=== PATIENT | male | born 1970 | race Caucasian/White ===

== ENCOUNTER → 2017-02-10 | Outpatient (CLI) | payer OTHER ==
[~2017-02-10] MED LIST: IOPAMIDOL (ISOVUE-300) 100 ML BTL IV ONE
== END ==
LOC: CIMAGING 08:14
PROVIDERS: ATTEND Family Medicine
DX: R10.12 Left upper quadrant pain (principal); N20.0 Calculus of kidney
CPT/HCPCS: 74160-PO; Q9967

== ENCOUNTER → 2017-06-06 | Outpatient (CLI) | payer OTHER | LOC: CIMAGING 07:18 | PROVIDERS: ATTEND Family Medicine | DX: R10.31 Right lower quadrant pain (principal) | CPT/HCPCS: 76705-PO; 76870-PO ==

== ENCOUNTER → 2017-11-14 | Outpatient (CLI) | payer OTHER | LOC: FIMAGING 17:55 | PROVIDERS: ATTEND Physician Assistant Medical | DX: M54.5 Low back pain (principal) ==

== ENCOUNTER 2018-02-08 21:13 | Emergency (ER) | payer OTHER ==
--- NOTE | 2018-02-08 21:34 | CPEKG ---
Heart Rate: 67 RR Interval: 896 P-R Interval: 133 QRSD Interval: 102 QT Interval: 400 QTC Interval: 423 P [place]: 1 QRS [place]: -12 T Wave [place]: 44 EKG Severity - NORMAL ECG - EKG Impression: SINUS RHYTHM EKG Impression: Agree with above Electronically Signed By: Zeb Bedolla 09-Feb-2018 11:01:13
[2018-02-08 21:56] LABS: PLATELET COUNT 267 10^3/uL (150-400)
[2018-02-08 22:01] LABS: INR 0.93 (0.83-1.16); PROTIME(PATIENT) 12.4 SEC (12.0-15.0)
[2018-02-08] MEDS ORDERED: IOPAMIDOL (ISOVUE 370) 100 ML BTL IV ONE (22:52)
--- NOTE | 2018-02-08 23:16 | EDPHY ---
H & P Time Seen by Provider: 02/08/18 21:14 HPI/ROS: 47-year-old male presents complaining of shortness of breath of sudden onset this evening, he attempted to go to an urgent care who recommended that he come to the emergency department for more extensive evaluation. He has had a hip arthroscopy for hip impingement on January 31, 2018 He is on aspirin. He states he only medication different from his normal meds that he took today was Colace and he is concerned that the shortness of breath may be a reaction to the Colace. Review of systems As per HPI General no fever no chills no weakness HEENT no eye pain no eye discharge. No eye redness, no sore throat Respiratory no cough, positive shortness of breath Cardiac no chest pain, no peripheral edema GI no abdominal pain, no diarrhea, no constipation, no nausea, no vomiting no flank pain, no hematuria, no dysuria Musculoskeletal no myalgias, positive joint pain Heme no easy bruising, no easy bleeding Endo no polyuria, no polydipsia Skin no rashes, no pruritus Neuro no syncope, no dizziness, no headaches Psych is no suicidal ideation, no homicidal ideation Past Medical/Surgical History: Hip impingement with recent arthroscopy Social History: Denies alcohol or drug use Smoking Status: Never smoked Physical Exam: 47-year-old male alert and oriented, anxious, vital signs stable, afebrile HEENT atraumatic normocephalic, extraocular muscles intact, anicteric Oropharynx negative for erythema negative exudate, tolerating her own secretions Neck supple no meningismus Lungs clear to auscultation bilaterally Heart regular rate and rhythm without murmur rub or gallop Abdomen nondistended normoactive bowel sounds soft nontender Back no CVA tenderness, no step-offs, no spinal tenderness Extremities no cyanosis clubbing or edema Neuro alert and oriented, no focal deficits Constitutional: Initial Vital Signs Temperature (C) 37.0 C 02/08/18 21:17 Heart Rate 84 02/08/18 21:17 Respiratory Rate 18 02/08/18 21:17 Blood Pressure 145/80 H 02/08/18 21:17 O2 Sat (%) 99 02/08/18 21:17 O2 Delivery Mode Room Air Allergies/Adverse Reactions: codeine Allergy (Verified 02/08/18 21:16) Penicillins Allergy (Verified 02/08/18 21:16) Home Medications: Medication Instructions Recorded Aspirin [Aspirin 325 mg (*)] 02/08/18 Docusate Sodium [Colace 100 MG (*)] 02/08/18 Indomethacin 02/08/18 Pantoprazole Sodium [Protonix] 40 mg PO 02/08/18 Medical Decision Making ED Course/Re-evaluation: Patient seen and evaluated for shortness of breath, postoperative from hip arthroscopy on January 31, 2018. EKG normal sinus rhythm Chest x-ray negative for infiltrate CT chest negative for pulmonary embolus My immediate concern was the possibility of pe in this post operative pt with reported tachycardia at the urgent care, in the ED he no longer had tachycardia but remained very anxious and intermittently complained of shortness of breath. Imp Anxiety pulmonary embolus ruled out by ct scan Plan dc home f/u pcp f/u ortho as planned Differential Diagnosis: Differential diagnosis considered but not limited to: URI, bronchitis, pneumonia, pulmonary embolus, anxiety - Data Points Laboratory Results: Laboratory Results 02/08/18 21:24 02/08/18 21:24 Departure - Departure Disposition: Home, Routine, Self-Care Clinical Impression: Dyspnea Condition: Good Instructions: Shortness of Breath (ED) Referrals: Patient,NotPresent [Primary Care Provider] - As per Instructions
[2018-02-08 23:52] VITALS: BP 124/80
== END 2018-02-08 23:52 | disposition home or self-care (01) ==
LOC: CED 21:13
DX: R06.00 Dyspnea, unspecified (principal); Z79.82 Long term (current) use of aspirin
CPT/HCPCS: 71046-PO; 71275-PO; 80053-PO; 84484-PO; 85025-PO; 85378-PO; 85610-PO; 85730-PO; Q9967

== ENCOUNTER 2018-03-05 13:14 | Emergency (ER) | payer OTHER ==
--- NOTE | 2018-03-05 14:12 | EDPHY ---
H & P Time Seen by Provider: 03/05/18 13:21 HPI/ROS: CHIEF COMPLAINT: Right calf pain HISTORY OF PRESENT ILLNESS: Patient states he has had right calf pain and tenderness since Tuesday the 01 of March. He called his orthopedic surgeon and was referred for ultrasound. He states he had arthroscopic hip surgery on the [address] Mccann at [facility]. He is still using crutches with partial weight-bearing. He was taking oral aspirin until last . On the 08 of February he came to this facility and had an evaluation for possible pulmonary embolism. At that time his D-dimer was 0.31, a he had a CT PE performed which was negative for thromboembolic disease. On the 24 of February he had an ultrasound on his right calf which was negative. He denies any shortness of breath. He had a twinge of bilateral muscular chest pain while going up stairs with his crutches this morning. That pain went away after 15 min and has not return. He denies any other recent illnesses. No trauma. He has tried ice and elevation to this right calf pain but says it has got worse not better. REVIEW OF SYSTEMS: Negative except per HPI. General Appearance: Alert, no distress. Eyes: Pupils equal and round no icterus Respiratory: No respiratory distress Neurological: Awake, alert, no focal deficits. Skin: Warm and dry, no rashes. Musculoskeletal: Neck is supple nontender. Extremities are symmetrical, full range of motion, no edema. Tenderness to palpation to the proximal posterior calf in the midline. Distal pulses normal. Psychiatric: Patient is oriented X 3, there is no agitation. Medical/surgical history: Recent surgery as per HPI Social history: Nonsmoker, no significant family history of thromboembolic disorder. Smoking Status: Never smoked Constitutional: Initial Vital Signs Temperature (C) 37 C 03/05/18 13:20 Heart Rate 93 03/05/18 13:20 Respiratory Rate 16 03/05/18 13:20 Blood Pressure 133/88 H 03/05/18 13:20 O2 Sat (%) 97 03/05/18 13:20 O2 Delivery Mode Room Air Allergies/Adverse Reactions: codeine Allergy (Verified 03/05/18 13:28) Penicillins Allergy (Verified 03/05/18 13:28) Home Medications: Medication Instructions Recorded Rivaroxaban [Xarelto 15mg (*)] 15 mg PO BID 21 Days #42 tab 03/05/18 Medical Decision Making - Diagnostics Imaging Results: Imaging Impressions Extremity Venous Study 03/05/18 13:28 Impression: 1. Partially occlusive thrombus in the popliteal vein with thrombus involving intramuscular branches in the gastrocnemius proximal to mid calf. 2. Popliteal cyst present. Findings discussed with Jane Tolliver MD at 15:12 hour, 03/05/2018. Imaging: Discussed imaging studies w/ will call order clerk Radiologist ED Course/Re-evaluation: Ultrasound shows partial occlusion of the popliteal vein with occlusion of the smaller veins of the gastrocnemius muscle. Will start patient on Xarelto. Differential Diagnosis: Differential diagnosis includes but is not limited to DVT, muscle strain, peripheral edema, muscle spasm. Ultrasound demonstrates partial occlusion of the popliteal vein consistent with DVT. Also smaller distal veins with complete occlusion in the gastrocnemius vasculature. Discussed with radiologist. Plan is to start patient on Xarelto, 15 mg twice a day for 21 days. He will follow up with his primary care physician and orthopedist this coming week and will get further prescriptions for Xarelto from them. Questions answered. Patient is stable for discharge. Departure - Departure Clinical Impression: DVT (deep venous thrombosis) Qualifiers: DVT location: lower extremity Affected thrombotic vein of extremity: popliteal Chronicity: acute Laterality: right Qualified Code(s): I82.431 - Acute embolism and thrombosis of right popliteal vein Condition: Fair Instructions: Deep Vein Thrombosis (ED) Additional Instructions: Start medications as prescribed. Follow up with her primary care physician and orthopedist this coming week without fail. Return for any chest pain or shortness of breath or other concerning new symptoms. Referrals: Nelson Demarco MD [Primary Care Provider] - As per Instructions Prescriptions: Rivaroxaban [Xarelto 15mg (*)] 15 mg PO BID 21 Days #42 tab
[2018-03-05 15:49] VITALS: BP 129/95
== END 2018-03-05 15:45 | disposition home or self-care (01) ==
LOC: CED 13:14
DX: I82.431 Acute embolism and thrombosis of right popliteal vein (principal)
CPT/HCPCS: 93971-PO

== ENCOUNTER → 2018-03-15 | Outpatient (CLI) | payer OTHER ==
[~2018-03-15] MED LIST changes: +IOPAMIDOL (ISOVUE 370) 100 ML BTL IV ONE; -IOPAMIDOL (ISOVUE-300) 100 ML BTL IV ONE
== END ==
LOC: FIMAGING 09:04
PROVIDERS: ATTEND Family Medicine
DX: R00.0 Tachycardia, unspecified (principal); Z86.718 Personal history of other venous thrombosis and embolism
CPT/HCPCS: Q9967

== ENCOUNTER → 2018-10-27 | Outpatient (CLI) | payer OTHER | LOC: BMCIMAGING 13:48 | PROVIDERS: ATTEND Family Medicine | DX: T14.8XXA Other injury of unspecified body region, initial encounter (principal); M85.89 Other specified disorders of bone density and structure, multiple sites ==